=== PATIENT | female | born 1975 | race Caucasian/White ===

== ENCOUNTER 2019-04-16 15:02 | Emergency (ER) | payer OTHER ==
[2019-04-16 15:08] VITALS: RESP 18
--- NOTE | 2019-04-16 15:34 | ED ---
ENT HPI - General Chief complaint: ENT Stated complaint: Sore throat Time Seen by Provider: 04/16/19 15:09 Source: patient Mode of arrival: ambulatory Limitations: no limitations - History of Present Illness Initial comments: Patient is a 43-year-old female presents to the ER complaining of a sore throat 2 days. Patient states she has associated headache, mild cough, and painful swallowing. Patient denies any sick contacts. Patient denies, fever, chills, abdominal pain, nausea. No other complaints at this time. - Related Data Previous Rx's Medication Instructions Recorded methylPREDNISolone [Medrol Dose 4 mg PO DIRECTED #1 pack 04/16/19 Pack] Allergies Allergy/AdvReac Type Severity Reaction Status Date / Time No Known Allergies Allergy Verified 04/16/19 15:08 Review of Systems ROS Statement: Those systems with pertinent positive or pertinent negative responses have been documented in the HPI. ROS Other: All systems not noted in ROS Statement are negative. Past Medical History Past Medical History: No Reported History History of Any Multi-Drug Resistant Organisms: None Reported Past Surgical History: No Surgical Hx Reported Past Psychological History: No Psychological Hx Reported Smoking Status: Current some day smoker Past Alcohol Use History: None Reported Past Drug Use History: None Reported General Exam - General Exam Comments Initial Comments: GENERAL: Well-appearing, well-nourished and in no acute distress. HEAD: Atraumatic, normocephalic. EYES: Pupils equal round and reactive to light, extraocular movements intact, sclera anicteric, conjunctiva are normal. ENT: TMs normal, nares patent, oropharynx clear without exudates. Bilateral tonsils are +1, without exudate, no erythema present. Moist mucous membranes. NECK: Normal range of motion, supple without lymphadenopathy or JVD. LUNGS: Breath sounds clear to auscultation bilaterally and equal. No wheezes rales or rhonchi. HEART: Regular rate and rhythm without murmurs, rubs or gallops. ABDOMEN: Soft, nontender, normoactive bowel sounds. No guarding, no rebound. No masses appreciated. : Deferred EXTREMITIES: Normal range of motion, no pitting or edema. No clubbing or cyanosis. NEUROLOGICAL: Cranial nerves II through XII grossly intact. Normal speech, normal gait. PSYCH: Normal mood, normal affect. SKIN: Warm, Dry, normal turgor, no rashes or lesions noted. Limitations: no limitations Course Vital Signs 04/16/19 04/16/19 15:05 16:33 Temperature 98.8 F 98.2 F Pulse Rate 81 74 Respiratory 18 18 Rate Blood Pressure 157/91 148/78 O2 Sat by Pulse 98 98 Oximetry Medical Decision Making - Medical Decision Making Patient is a 43-year-old female complaining of sore throat 2 days. Patient has associated headache, mild cough, and painful swallowing. On exam, patient's tonsils are +1 enlarged, no exudate, no erythema. No signs of abscess. Patient does not look toxic. Strep test is negative. Patient will be discharged home with a course of steroids. Return parameters were discussed. - Lab Data Lab Results 04/16/19 Range/Units 15:25 Group A Strep Rapid Negative (Negative) Disposition Clinical Impression: Acute viral pharyngitis Disposition: HOME SELF-CARE Condition: Stable Instructions (If sedation given, give patient instructions): Pharyngitis (ED) Additional Instructions: Please return to the Emergency Department if symptoms worsen or any other concerns. Follow-up with PCP or return to ER if he developed fever, chills, and/or increase throat pain. Prescriptions: methylPREDNISolone [Medrol Dose Pack] 4 mg PO DIRECTED #1 pack Is patient prescribed a controlled substance at d/c from ED?: No Referrals: Otilio Cavazos DO [Primary Care Provider] - 1-2 days
[2019-04-16 16:34] VITALS: BP 148/78; PULSE 74; TEMP 98.2
== END 2019-04-16 16:33 | disposition home or self-care (01) ==
LOC: MERGE 15:02 → EC 15:02
DX: J02.8 Acute pharyngitis due to other specified organisms (principal); F17.200 Nicotine dependence, unspecified, uncomplicated
CPT/HCPCS: 87081; 87430; 99282

== ENCOUNTER 2020-06-08 08:53 | Inpatient (IN) | payer OTHER ==
[2020-06-08] MEDS ORDERED: OXYTOCIN 10 UNIT/ML 1 ML VIAL IM PRN (09:05)
[2020-06-08] MEDS ORDERED: CARBOPROST TROMETHAMINE 250 MCG/ML 1 ML AMP IM PRN (09:05)
[2020-06-08] MEDS ORDERED: LIDOCAINE 0.5% (PF) 5 MG/ML (50 ML SDV) SQ PRN (09:05)
[2020-06-08] MEDS ORDERED: METHYLERGONOVINE 0.2 MG/ML 1 ML AMP IM PRN (09:05)
[2020-06-08] MEDS ORDERED: TERBUTALINE 1 MG/ML VIAL SQ PRN (09:05)
[2020-06-08] MEDS ORDERED: CITRIC ACID-SODIUM CITRATE 15 ML CUP PO ONE (09:08)
[2020-06-08] MEDS ORDERED: OXYTOCIN 10 UNIT/ML 1 ML VIAL ONE (09:12)
[2020-06-08] MEDS ORDERED: SUCCINYLCHOLINE CHLORIDE 100 MG/5 ML SYR IV ONE (09:12)
[2020-06-08] MEDS ORDERED: ceFAZolin 1,000 MG VIAL ONE (09:12)
[2020-06-08] MEDS ORDERED: SODIUM CHLORIDE 0.9% 100 ML BAG ONE (09:12)
[2020-06-08] MEDS ORDERED: HYDROmorphone (PF) 1 MG/ML ONE (09:12)
[2020-06-08] MEDS ORDERED: PROPOFOL 10 MG/ML 20 ML VIAL IV ONE (09:12)
[2020-06-08] MEDS ORDERED: fentaNYL (PF) 50 MCG/ML 2 ML AMP ONE (09:12)
[2020-06-08 09:28] LABS: Basophils # (A) 0.1 k/uL (0-0.2); Basophils % (A) 0 %; Eosinophils # (A) 0.3 k/uL (0-0.7); Eosinophils % (A) 2 %; HCT 40.4 % (34.0-46.0); HGB 13.6 gm/dL (11.4-16.0); Lymphocytes # (A) 1.7 k/uL (1.0-4.8); Lymphocytes % (A) 8 %; MCH 29.1 pg (25.0-35.0); MCHC 33.6 g/dL (31.0-37.0); MCV 86.6 fL (80.0-100.0); Mean Platelet Volume 8.4; Monocytes # (A) 0.3 k/uL (0-1.0); Monocytes % (A) 1 %; Neutrophils # (A) 19.2 k/uL (1.3-7.7); Neutrophils % (A) 88 %; Platelet Count 363 k/uL (150-450); RBC 4.67 m/uL (3.80-5.40); RDW 14.7 % (11.5-15.5); WBC 21.8 k/uL (3.8-10.6)
[2020-06-08 10:01] LABS: Amphetamine Screen,Urine Not Detected (NotDetected); Barbiturate Screen,Urine Not Detected (NotDetected); Benzodiazepines Screen,Urine Not Detected (NotDetected); Cocaine Screen,Urine Not Detected (NotDetected); Methadone Screen, Urine Not Detected (NotDetected); Opiate Screen,Urine Not Detected (NotDetected); Oxycodone Screen, Urine Not Detected (NotDetected); Phencyclidine Screen,Urine Not Detected (NotDetected); Tricyclic Antidepressant,Urine Not Detected (NotDetected); Urn Cannabinoid Scrn Not Detected (NotDetected)
[2020-06-08] MEDS ORDERED: diphenhydrAMINE 50 MG/ML 1 ML VIAL IVP PRN ×2 (10:18)
[2020-06-08] MEDS ORDERED: diphenhydrAMINE 50 MG CAP PO PRN (10:18)
[2020-06-08] MEDS ORDERED: METOCLOPRAMIDE 5 MG/ML 2 ML VIAL IVP PRN (10:18)
[2020-06-08] MEDS ORDERED: ZOLPIDEM 5 MG TAB PO PRN (10:18)
[2020-06-08] MEDS ORDERED: KETOROLAC 30 MG/ML 1 ML VIAL IVP PRN (10:18)
[2020-06-08] MEDS ORDERED: ONDANSETRON 4 MG/2 ML VIAL IVP PRN (10:18)
[2020-06-08] MEDS ORDERED: NALOXONE 0.4 MG/ML 1 ML VIAL IV PRN (10:18)
[2020-06-08] MEDS ORDERED: diphenhydrAMINE 25 MG CAP PO PRN (10:18)
[2020-06-08] MEDS ORDERED: ACETAMINOPHEN TAB 325 MG TAB PO PRN (10:18)
[2020-06-08] MEDS: LACTATED RINGERS 1,000 ML IV SCH ×4 (10:26→18:41)
--- NOTE | 2020-06-08 13:20 | P.HPOB ---
History of Present Illness H&P Date: 06/08/20 Chief Complaint: Rupture of membranes, contractions This is a 44-year-old female 1 para 0 with no care who was brought in by EMS. When they arrived at her house, she was walking around naked and blood and fluid were everywhere around the house. They stated the house was very disheveled. The patient states she had rupture membranes at approximately 10 PM last night. She had been leaking fluid and cramping ever since then. She stated she did not come to the hospital because she didn't know what was going on. She did state she had been to [facility] one time and did have an ultrasound that confirmed . However when asked what her due date was she was unclear and said May or June. When asked why she did not seek care, she stated she was worried about the virus. Obstetrical history: First Social history: She is . She is unemployed. Review of Systems Review of systems is limited due to patient is in active labor. Constitutional: Denies chills, Denies fever Cardiovascular: Denies chest pain, Denies shortness of breath Respiratory: Denies cough Gastrointestinal: Reports abdominal pain Genitourinary: Reports abnormal vaginal bleeding, Reports pelvic pain, Reports , Reports vaginal discharge Musculoskeletal: Reports low back pain Past Medical History Past Medical History: No Reported History Additional Past Medical History / Comment(s): reports that she has a history of migraines History of Any Multi-Drug Resistant Organisms: None Reported Past Surgical History: No Surgical Hx Reported Past Psychological History: No Psychological Hx Reported Smoking Status: Never smoker Past Alcohol Use History: None Reported Past Drug Use History: None Reported Medications and Allergies Allergies Allergy/AdvReac Type Severity Reaction Status Date / Time No Known Allergies Allergy Verified 04/17/19 09:08 Exam Osteopathic Statement: *. No significant issues noted on an osteopathic structu ral exam other than those noted in the History and Physical/Consult. Vital Signs Temp Pulse Resp BP Pulse Ox 06/08/20 12:24 96.6 F L 84 16 138/85 97 06/08/20 11:52 87 16 98 06/08/20 11:24 77 16 142/78 99 06/08/20 11:09 83 16 145/84 98 06/08/20 10:54 84 18 143/81 100 06/08/20 10:39 84 18 141/81 99 06/08/20 10:24 97.1 F L 84 18 144/82 100 Intake and Output 06/07/20 06/08/20 06/08/20 22:59 06:59 14:59 Other: Weight 99.79 kg Gen.: Well-developed well-nourished female in obvious pain due to labor HEENT: Within normal limits Heart: Regular rate and rhythm Lungs: Clear to auscultation bilaterally Abdomen: heart tones: 130s when able to keep on the monitor. No decelerations are noted but tracing is intermittent. Variability is normal. Contractions are approximately every 5 minutes. Pelvic exam: A foot is visible at the vagina. On pelvic exam the are palpated within the vagina and no cervix is palpated. It appears that baby's feet and buttocks or in the pelvis. Extremities: Negative Homans. Results Result Diagrams: 06/08/20 09:17 Abnormal Lab Results - Last 24 Hours (Table) 06/08/20 Range/Units 09:17 WBC 21.8 H (3.8-10.6) k/uL Neutrophils # 19.2 H (1.3-7.7) k/uL Assessment and Plan (1) Labor and delivery affected by breech presentation Current Visit: Yes Status: Acute Code(s): O32.1XX0 - MATERNAL CARE FOR BREECH PRESENTATION, UNSP SNOMED Code(s): 525282423 Plan: Admission. Will obtain all labs and drug screen. Will proceed with stat emergency section due to breech presentation with parts in the vagina. I have discussed the risks, benefits, and alternative therapies for the above- mentioned procedure and for both sedation/anesthesia as well as necessary blood products administration, if indicated, as they pertain to this patient. The patient has indicated her understanding and acceptance of the risks and procedures discussed.
--- NOTE | 2020-06-08 13:28 | P.OP ---
Date of Procedure: 06/08/20 Preoperative Diagnosis: 1. Breech presentation. 2. Complete dilation. 3. No care. Postoperative Diagnosis: Same Procedure(s) Performed: Primary low transverse section Anesthesia: SEKOU Surgeon: Coni Barry Analytical Strategist #1: Tylor Villafuerte Estimated Blood Loss (ml): 600 Pathology: other (Placenta) Condition: stable Disposition: floor Indications for Procedure: This is a 44-year-old female 1 para 0 with unknown EDC who presented to triage via EMS with complaints of spontaneous rupture membranes at 10 PM last night and contractions. She was noted to be completely dilated with feet within the vagina. She was counseled on the need for emergency section. I have discussed the risks, benefits, and alternative therapies for the above- mentioned procedure and for both sedation/anesthesia as well as necessary blood products administration, if indicated, as they pertain to this patient. The patient has indicated her understanding and acceptance of the risks and procedures discussed. Operative Findings: A viable female is noted in the footling breech presentation with scores of 2 at 1 minute 6 at 5 minutes and 7 at 10 minutes. Infant weight was 4 lbs. 9 oz. Thick meconium was noted. Normal uterus tubes and ovaries are noted. Description of Procedure: The patient is taken to the operating room where she is placed in the dorsal supine position with leftward tilt. She is prepped and draped in the normal sterile fashion. General anesthesia was given. A Pfannenstiel skin incision was made with a scalpel. A second knife was used to carry the incision down to the underlying layer of fascia. The fascia was nicked in the midline with a scalpel and then extended laterally bilaterally with Mayers scissors. The anterior lip of the fascia was grasped with 2 Kehinde clamps and then dissected off the underlying rectus muscle in the midline with Mayers scissors. The inferior aspect of the fascial incision was grasped with 2 Kehinde clamps and dissected off the underlying rectus muscle and the midline with Mayers scissors. Next the peritoneum layer was tented up with 2 hemostats and then entered sharply with the scalpel. The incision is extended superiorly and inferiorly with Metzenbaum scissors. Next a DeLee retractor is placed. The vesicouterine peritoneum is entered sharply with Metzenbaum scissors and extended laterally bilaterally with Metzenbaum scissors and then the bladder flap is pushed inferiorly. The lower uterine segment is incised in transverse fashion with the scalpel and then bluntly entered with a hemostat. Thick meconium fluid is noted. The incision was then extended laterally bilaterally with 2 fingers. Next a placed my hand into the pelvis through the incision and I was unable to grasp the buttocks or legs. Dr. Villafuerte from his angle was better able to feel and was able to bring one leg out at a time and bring the remainder the out. Nose and mouth were bulb suctioned and cord was clamped and cut. Cord blood was obtained secondary to unknown blood type. A segment of cord was taken for cord gases. Placenta was then removed manually. Baby was taken to awaiting pediatric staff. Uterus is exteriorized and cleared of all clots and debris. Uterine incision is closed with 0 Vicryl suture in a running locked fashion. A second layer of 0 Vicryl suture is used in a running fashion for hemostasis. Once adequate hemostasis as assured, the vesicouterine peritoneum is reapproximated with 2-0 Vicryl suture in a running fashion. Posterior cul-de-sac is suctioned of all clots and debris. Uterus is returned to the abdomen. Incision is noted to be hemostatic. Peritoneal layer is closed with 0 Vicryl suture in a running fashion. Muscle layer is reapproximated with 0 Vicryl suture in interrupted fashion. Fascia layer is then closed with 0 PDS suture with 2 sutures meeting in the midline and the knots buried in either side and in the midline. The subcutaneous tissue was then closed with 2-0 Vicryl suture. Skin layer was then closed with rupa. All sponge and needle counts are correct. The patient is taken to recovery room in stable condition.
[2020-06-08 17:09] LABS: Hepatitis B Surface Antigen Non-Reactive (Non-Reactive)
[2020-06-08] MEDS: SENNOSIDES-DOCUSATE SODIUM 1 EACH TAB PO SCH (20:18)
[2020-06-09] MEDS: LACTATED RINGERS 1,000 ML IV SCH ×2 (04:57→20:57)
[2020-06-09 05:53] LABS: Basophils % (A) 0 %; Eosinophils # (A) 0.2 k/uL (0-0.7); Eosinophils % (A) 1 %; HCT 30.1 % (34.0-46.0); Lymphocytes # (A) 1.7 k/uL (1.0-4.8); Lymphocytes % (A) 10 %; Mean Platelet Volume 8.4; Monocytes # (A) 0.4 k/uL (0-1.0); Monocytes % (A) 3 %; Neutrophils # (A) 14.2 k/uL (1.3-7.7); Neutrophils % (A) 85 %; Platelet Count 258 k/uL (150-450); RBC 3.43 m/uL (3.80-5.40); RDW 15.1 % (11.5-15.5); WBC 16.7 k/uL (3.8-10.6)
[2020-06-09 05:58] LABS: HGB 9.9 gm/dL (11.4-16.0)
[2020-06-09] MEDS: SENNOSIDES-DOCUSATE SODIUM 1 EACH TAB PO SCH ×3 (08:19→21:07)
--- NOTE | 2020-06-09 08:28 | P.PNOBGPC ---
Subjective - Subjective Principal diagnosis: Status post primary section postoperative day #1 Interval history: Patient is doing okay. She states her pain is better. She is not passing flatus or bowel movement but is burping. She is tolerating regular diet. Lochia is decreasing. She has not called to find out updates on her baby yet. Patient reports: Reports appetite normal, Reports voiding normally, Reports pain well controlled, Reports ambulating normally [place]: transported Objective - Vital Signs Latest vital signs: Vital Signs Temp Pulse Resp BP Pulse Ox 06/09/20 06:07 89 146/68 06/09/20 04:00 98.1 F 109 H 16 178/97 06/09/20 00:00 97.8 F 85 16 147/71 95 06/08/20 20:00 97.7 F 85 16 129/76 99 06/08/20 18:00 155/88 06/08/20 15:20 97.5 F L 80 18 150/77 95 06/08/20 12:24 96.6 F L 84 16 138/85 97 06/08/20 11:52 87 16 98 06/08/20 11:24 77 16 142/78 99 06/08/20 11:09 83 16 145/84 98 06/08/20 10:54 84 18 143/81 100 06/08/20 10:39 84 18 141/81 99 06/08/20 10:24 97.1 F L 84 18 144/82 100 Intake and Output 06/08/20 06/09/20 06/09/20 22:59 06:59 14:59 Intake Total 120 Output Total 75 700 Balance 45 -700 Intake: Oral 120 Output: Urine 75 700 Uretheral (Virgen) 200 Other: Voiding Method Indwelling Catheter - Exam Lungs: bilateral: normal Extremities: Present: normal. Absent: tenderness Abdomen: Present: soft (Positive bowel sounds 4). Absent: distention, tenderness Incision: Present: normal, dry, intact. Absent: erythematous Uterus: Present: normal, firm. Absent: tenderness - Labs Labs: Abnormal Lab Results - Last 24 Hours (Table) 06/08/20 06/09/20 Range/Units 09:17 05:40 WBC 21.8 H 16.7 H (3.8-10.6) k/uL RBC 3.43 L (3.80-5.40) m/uL Hgb 9.9 L D (11.4-16.0) gm/dL Hct 30.1 L (34.0-46.0) % Neutrophils # 19.2 H 14.2 H (1.3-7.7) k/uL Assessment and Plan Assessment: Status post primary section postoperative day #1. Mildly elevated blood pressures. (1) Labor and delivery affected by breech presentation Current Visit: Yes Status: Acute Code(s): O32.1XX0 - MATERNAL CARE FOR BREEC H PRESENTATION, UNSP SNOMED Code(s): 039801764 Plan: Will start on labetalol 200 mg twice a day today. Will observe blood pressures. Patient is encouraged to ambulate.
[2020-06-09] MEDS: LABETALOL 200 MG TAB PO SCH ×2 (10:54→21:06)
[2020-06-09] MEDS: HYDROcodone/APAP 5-325MG 1 EACH TAB PO PRN ×2 (11:08→21:10)
[2020-06-09 15:59] LABS: HIV 2 AB Non-Reactive (Non-Reactive); HIV AB P24 Non-Reactive (Non-Reactive); HIV P24 AG Non-Reactive (Non-Reactive)
--- NOTE | 2020-06-10 09:02 | P.PNOBGPC ---
Subjective - Subjective Principal diagnosis: Status post primary section postoperative day #2 Interval history: Patient is doing okay. She denies any significant complaints. She is passing flatus and bowel movement. She denies any heavy bleeding. Baby is still at [facility]. She denies any headaches or blurry vision. Patient reports: Reports appetite normal, Reports voiding normally, Reports pain well controlled, Reports ambulating normally [place]: transported Objective - Vital Signs Latest vital signs: Vital Signs Temp Pulse Resp BP Pulse Ox 06/10/20 08:00 98.8 F 103 H 18 153/89 96 06/10/20 00:00 98.2 F 92 15 122/72 97 06/09/20 21:00 108 H 16 178/82 97 06/09/20 16:00 98.4 F 96 18 112/68 94 L 06/09/20 14:00 98.3 F 88 18 108/59 94 L 06/09/20 11:00 98.3 F 103 H 20 140/86 93 L Intake and Output 06/09/20 06/10/20 06/10/20 22:59 06:59 14:59 Output Total 600 Balance -600 Output: Urine 600 Other: # Voids 1 1 1 # Bowel Movements 0 - Exam Extremities: Present: normal. Absent: tenderness Abdomen: Present: normal appearance, soft. Absent: distention, tenderness Incision: Present: normal, dry, intact. Absent: erythematous Uterus: Present: normal, firm. Absent: tenderness Assessment and Plan Assessment: Status post primary section postoperative day #2 Mildly elevated blood pressures even on labetalol (1) Labor and delivery affected by breech presentation Current Visit: Yes Status: Acute Code(s): O32.1XX0 - MATERNAL CARE FOR BREECH PRESENTATION, UNSP SNOMED Code(s): 941794384 Plan: Will continue to observe at least another day due to continued intermittent elevated blood pressures. Will continue with labetalol twice a day 200 mg.
[2020-06-10] MEDS: LABETALOL 200 MG TAB PO SCH ×2 (09:35→20:29)
[2020-06-10] MEDS: IBUPROFEN 600 MG TAB PO PRN ×2 (09:35→19:33)
[2020-06-10] MEDS: SENNOSIDES-DOCUSATE SODIUM 1 EACH TAB PO SCH ×2 (17:51→19:33)
[2020-06-10] MEDS: LACTATED RINGERS 1,000 ML IV SCH ×3 (19:33→22:33)
[2020-06-11] MEDS: LABETALOL 200 MG TAB PO SCH ×2 (07:17→22:47)
[2020-06-11] MEDS: SENNOSIDES-DOCUSATE SODIUM 1 EACH TAB PO SCH ×2 (07:18→20:33)
--- NOTE | 2020-06-11 09:07 | P.DS ---
Providers Date of admission: 06/08/20 09:06 Expected date of discharge: 06/11/20 Attending physician: Coni Barry Primary care physician: Stated None - Discharge Diagnosis(es) (1) Labor and delivery affected by breech presentation Current Visit: Yes Status: Acute Hospital Course: Vision underwent a primary emergency section due to breech presentation in active labor on 06/08/2020. She delivered a viable female infant with scores of 2 at 1 minute 6 at 5 minutes and 7 at 10 minutes with infant weight of 4 lbs. 9 oz. Baby was transported to [facility]. Patient is doing well today. She is ambulating. She is passing flatus and urinating. She has had a bowel movement. Her pain is well-controlled with ibuprofen only. She denies any headaches blurry vision or epigastric pain. Her blood pressures have still been slightly elevated in the 140s to 150s over 80s to 90s. She has been on labetalol 200 mg twice a day for the past 2 days. Vital signs are otherwise stable. Abdomen is soft with positive bowel sounds 4. Incision is clean dry and intact with rupa in place. Extremities show negative Homans. Impression is status post primary emergency section postoperative day #3, gestational hypertension. Plan is to add Procardia 30 XL daily starting this morning. As long as her blood pressures have normalized by this afternoon, may be able to discharge home later today. She will continue on labetalol 200 mg twice a day. She also will receive a prescription for ibuprofen. Rupa will be removed and Steri-Strips placed prior to discharge. She is instructed to follow-up in the office in approximately 10 days for a postoperative and blood pressure check. Routine postoperative and instructions are given. She has been seen by sr. social media & mobile manager also. She is advised to call the office if she has any further questions or concerns prior to her appointment time. Procedures: Emergency primary low transverse section on 06/08/2020 Patient Condition at Discharge: Stable Plan - Discharge Summary Discharge Rx Participant: Yes New Discharge Prescriptions: New Ibuprofen [Motrin] 600 mg PO Q6HR PRN #60 tab PRN Reason: Mild Pain Or Fever >= 100.5 NIFEdipine XL [Procardia XL] 30 mg PO DAILY #30 tab.er.24 Labetalol [Trandate] 200 mg PO BID #30 tab Discharge Medication List Ibuprofen [Motrin] 600 mg PO Q6HR PRN #60 tab 06/11/20 [Rx] Labetalol [Trandate] 200 mg PO BID #30 tab 06/11/20 [Rx] NIFEdipine XL [Procardia XL] 30 mg PO DAILY #30 tab.er.24 06/11/20 [Rx] Follow up Appointment(s)/Referral(s): Coni Barry DO [Doctor of Osteopathic Medicine] - 10 Days Activity/Diet/Wound Care/Special Instructions: Instructions 1. Do not begin any exercise program for 3 weeks. 2. Do not resume sexual relations for 3 weeks or longer if uncomfortable. 3. You may take tub baths or showers at any time. 4. You may use tampons if desired after 3 weeks. 5. Keep the area of episiotomy (stitches) clean and dry. 6. If you are not nursing, wear a good fitting, supportive bra during the day and limit fluid intake for at least 1 week to prevent breast engorgement. 7. Call the office, [phone], within the next week to make appointment for your 6 week checkup if it has not already been made. 8. Report any of the following occurrences to the doctor promptly: a. Heavy, excessive bleeding b. Chills, fever c. Burning or frequency of urination d. Pain or redness and breasts if nursing e. Increasing pain or swelling in episiotomy (stitches). In addition to the above instructions, the following additional should be followed: 1. No heavy lifting or straining (exercising) until after 6 week checkup. 2. Keep abdominal incision clean and dry: You may wear a dressing if more comfortable. 3. Make office appointment for 10 days after going home or as instructed by her doctor. Discharge Disposition: HOME SELF-CARE
[2020-06-11] MEDS: NIFEdipine XL 30 MG TAB.ER.24 PO SCH (09:59)
[2020-06-12] MEDS: LABETALOL 200 MG TAB PO SCH (08:33)
[2020-06-12] MEDS: IBUPROFEN 600 MG TAB PO PRN (08:33)
[2020-06-12] MEDS: SENNOSIDES-DOCUSATE SODIUM 1 EACH TAB PO SCH (08:35)
[2020-06-12] MEDS: NIFEdipine XL 30 MG TAB.ER.24 PO SCH (10:25)
[2020-06-12 10:43] VITALS: TEMP 98.6
[2020-06-12 10:45] VITALS: BP 100/58; PULSE 66; RESP 14
== END 2020-06-12 12:35 | disposition home or self-care (01) | DRG 788 ==
LOC: FBPOP 08:53 → 4FBP 09:06
PROVIDERS: ADMIT Obstetrics & Gynecology; ATTEND Obstetrics & Gynecology
PROC: 10D00Z1 Extraction of Products of Conception, Low, Open Approach (ICD-10-PCS; principal; 2020-06-08 09:10)
DX: O32.8XX0 Maternal care for other malpresentation of fetus, not applicable or unspecified (principal); O77.0 Labor and delivery complicated by meconium in amniotic fluid; O13.4 Gestational [pregnancy-induced] hypertension without significant proteinuria, complicating childbirth; Z3A.00 Weeks of gestation of pregnancy not specified; Z37.0 Single live birth; Z56.0 Unemployment, unspecified
CPT/HCPCS: 80306; 85025; 86762; 86780; 86850; 86900; 86901; 87340; 87390; 88307; 99213